=== PATIENT | male | born 1970 | race Caucasian/White ===

== ENCOUNTER 2018-03-28 10:44 | Emergency (ER) | payer OTHER ==
[2018-03-28] MEDS ORDERED: ONDANSETRON 4 MG/2 ML VIAL ONE (11:19)
[2018-03-28] MEDS ORDERED: MECLIZINE HCL 12.5 MG TAB ONE (11:19)
--- NOTE | 2018-03-28 11:51 | RAD REPORT ---
EXAM DESCRIPTION: CT - Head Brain Wo Cont - 03/28/2018 11:33 am CLINICAL HISTORY: Weakness, dizziness, syncope COMPARISON: CT head November 2013 TECHNIQUE: Axial 5 mm thick images of the head were obtained without IV contrast. All CT scans are performed using dose optimization technique as appropriate and may include automated exposure control or mA/KV adjustment according to patient size. FINDINGS: No intracranial hemorrhage, mass, edema or shift of mid-line structures. No acute infarcti on changes seen. No abnormal extra-axial fluid collections. Ventricles are normal. Mastoid air cells and visualized portions of the paranasal sinuses are clear. No acute bony findings. IMPRESSION: Negative non-contrast CT head examination. No significant change from comparison.
[2018-03-28 12:14] LABS: Protime INR 0.97
[2018-03-28 12:43] LABS: Absolute Lymphocytes (CBC) 1.8 K/uL (0.7-4.9); Absolute Monocytes 0.7 K/uL (0.1-1.3); Absolute Neutrophil 4.2 K/uL (1.8-8.0); Basophils % 0.9 % (0-1.3); Eosinophils % 2.1 % (0-4.4); Hematocrit 41.9 % (39.6-49.0); Lymphocytes % 25.7 % (15.3-44.8); MCH 29.6 pg (27.0-35.0); MCV 86.3 fL (80-100); Monocytes % 9.7 % (3.3-12.3); RBC Red Blood Cell Count 4.86 M/uL (4.33-5.43)
[2018-03-28] MEDS ORDERED: ASPIRIN 81 MG CHEWABLE TABLET ONE (12:53)
[2018-03-28 13:41] LABS: ALT/SGPT 65 U/L (12-78); AST/SGOT 34 U/L (15-37); Albumin 3.5 g/dL (3.4-5.0); Alkaline Phosphatase 65 U/L (45-117); BUN Blood Urea Nitrogen 12 mg/dL (7-18); Bicarbonate 25 mmol/L (21-32); Bilirubin Direct 0.2 mg/dL (0-0.2); CKMB Creatine Kinase MB 2.4 ng/mL (0.3-3.6); Creatine Phosphokinase 299 U/L (39-308); Glucose Level 98 mg/dL (74-106); Magnesium 2.3 mg/dL (1.8-2.4); Potassium 3.9 mmol/L (3.5-5.1); Sodium Level 140 mmol/L (136-145)
--- NOTE | 2018-03-28 15:09 | RAD REPORT ---
EXAM DESCRIPTION: MRI - Brain Wo Cont - 03/28/2018 2:48 pm CLINICAL HISTORY: Dizziness and vertigo COMPARISON: 03/28/[address] TECHNIQUE: Axial, sagittal, and coronal magnetic images of the brain were obtained. Contrast was not requested FINDINGS: No abnormal signal is present within the brain. Diffusion-weighted/ADC mapping does not reveal evidence of acute infarction. The ventricles are normal caliber. An extra-axial fluid collection is not present The sinuses and mastoids are clear. IMPRESSION: Unremarkable unenhanced brain MRI
[2018-03-28 15:46] LABS: Urine Blood TRACE (NEG); Urine Glucose NEGATIVE (NEG); Urine Protein NEGATIVE (NEG); Urine Specific Gravity 1.015 (1.005-1.030)
--- NOTE | 2018-03-28 16:15 | EDPHYS ---
Physician Documentation [facility] Name: Jose Barraza Age: 47 yrs Sex: Male : 1970 Arrival Date: 03/28/2018 Time: 10:45 Bed 13 Private MD: None, None ED Physician Dave Carranza HPI: 03/28 11:10 This 47 yrs old Male presents to ER via Ambulatory with complaints of cp Dizziness. 11:10 The patient presents with dizziness, lightheadedness, sense of spinning. Onset: The cp symptoms/episode began/occurred this morning. 11:10 Context: just prior to the episode the patient experienced no apparent symptoms, worse cp when sitting up from lying flat. Associated signs and symptoms: Pertinent positives: blurred vision, Pertinent negatives: abdominal pain, chest pain, focal weakness, headache, near-syncope, numbness, palpitations, shortness of breath, syncope. Severity of symptoms: in the emergency department the symptoms are unchanged. Patient's baseline: Neuro: alert and fully oriented, Motor: no deficits, Ambulation: walks without assistance, Speech: normal, The patient has a previous history of TIA. Historical: - Allergies: 10:54 No Known Allergies; aj - Home Meds: 10:54 None [Active]; aj - PMHx: 10:54 TIA; Sleep Apnea; aj - PSHx: 10:54 None; aj - Immunization history:: Adult Immunizations up to date. - Social history:: Smoking status: Patient/guardian denies using tobacco. - Ebola Screening: : Patient negative for fever greater than or equal to 101.5 degrees Fahrenheit, and additional compatible Ebola Virus Disease symptoms Patient denies exposure to infectious person Patient denies travel to an Ebola-affected area in the 21 days before illness onset No symptoms or risks identified at this time. ROS: 11:15 Constitutional: Negative for body aches, chills, fever, poor PO intake. cp 11:15 Eyes: Positive for blurry vision, Negative for discharge, pain, photophobia, redness, cp vision loss. 11:15 ENT: Negative for drainage from ear(s), ear pain, sore throat, difficulty swallowing, difficulty handling secretions. 11:15 Cardiovascular: Negative for chest pain, edema, palpitations. 11:15 Respiratory: Negative for cough, shortness of breath, wheezing. 11:15 Abdomen/GI: Negative for abdominal pain, vomiting, diarrhea, constipation, anorexia, dysphagia, black/tarry stool, rectal bleeding. 11:15 Back: Negative for pain at rest, pain with movement, radiated pain. 11:15 : Negative for urinary symptoms. 11:15 MS/extremity: Negative for injury or acute deformity, decreased range of motion, paresthesias. 11:15 Skin: Negative for cellulitis, rash. 11:15 Neuro: Positive for dizziness, Negative for altered mental status, gait disturbance, headache, numbness, speech changes, syncope, near syncope, weakness. 11:15 All other systems are negative. Exam: 11:22 Constitutional: The patient appears in no acute distress, alert, awake, cp non-diaphoretic, non-toxic, well developed, well nourished. 11:22 Head/Face: Normocephalic, atraumatic. Eyes: Pupils equal round and reactive to light, cp extra-ocular motions intact. Lids and lashes normal. Conjunctiva and sclera are non-icteric and not injected. Cornea within normal limits. Periorbital areas with no swelling, redness, or edema. ENT: Nares patent. No nasal discharge, no septal abnormalities noted. Tympanic membranes are normal and external auditory canals are clear. Oropharynx with no redness, swelling, or masses, exudates, or evidence of obstruction, uvula midline. Mucous membranes moist. Neck: Trachea midline, no thyromegaly or masses palpated, and no cervical lymphadenopathy. Supple, full range of motion without nuchal rigidity, or vertebral point tenderness. No Meningismus. Chest/axilla: Normal chest wall appearance and motion. Nontender with no deformity. No lesions are appreciated. 11:22 Cardiovascular: Rate: normal, Rhythm: regular, Pulses: Pulses are 2+ in right radial artery and left radial artery. Heart sounds: murmur, not appreciated, Edema: is not appreciated, JVD: is not appreciated. 11:22 Respiratory: the patient does not display signs of respiratory distress, Respirations: normal, no use of accessory muscles, no retractions, no splinting, no tachypnea, labored breathing, is not present, Breath sounds: are clear throughout, no decreased breath sounds, no stridor, no wheezing. 11:22 Abdomen/GI: Inspection: abdomen appears normal, Bowel sounds: active, all quadrants, Palpation: abdomen is soft and non-tender, in all quadrants, rebound tenderness, is not appreciated, voluntary guarding, is not appreciated, involuntary guarding, is not appreciated. 11:22 Back: pain, is absent, ROM is normal. 11:22 Skin: cellulitis, is not appreciated, no rash present. 11:22 Neuro: Orientation: to person, place \T\ time. Mentation: lucid, able to follow commands, Cerebellar function: Romberg testing is negative, normal finger to nose testing, heel to pollack testing is normal, Motor: moves all fours, strength is normal, Sensation: no obvious gross deficits. 11:43 ECG was reviewed by the Attending Physician. cp Vital Signs: 10:54 BP 125 / 75; Pulse 68; Resp 16; Temp 97.6; Pulse Ox 97% on R/A; Weight 129.27 kg; aj Height 6 ft. 1 in. (185.42 cm); 11:15 BP 114 / 68 Supine; Pulse 62; Resp 18; Pulse Ox 97% on R/A; hj 11:15 BP 115 / 69 Sitting; Pulse 72; Resp 18; Pulse Ox 97% on R/A; hj 11:15 BP 118 / 78 Standing; Pulse 68; Resp 18; Pulse Ox 97% on R/A; hj 13:12 BP 120 / 70; Pulse 71; Resp 18; Pulse Ox 100% on R/A; hj 14:45 BP 122 / 68; Pulse 70; Resp 18; Pulse Ox 100% on R/A; hj 15:52 BP 123 / 70; Pulse 72; Resp 18; Pulse Ox 100% on R/A; hj 16:20 BP 124 / 69; Pulse 74; Resp 18; Pulse Ox 100% on R/A; hj 10:54 Body Mass Index 37.60 (129.27 kg, 185.42 cm) aj MDM: 10:58 Patient medically screened. cp 12:00 Differential diagnosis: cardiac arrhythmia, CVA, generalized weakness, GI bleed, cp hypovolemia, idiopathic dizziness, TIA, vertigo. 16:15 Data reviewed: vital signs, nurses notes, lab test result(s), EKG, radiologic studies, cp CT scan, MRI, plain films. 16:15 Test interpretation: by ED physician or midlevel provider: ECG, plain radiologic cp studies. Counseling: I had a detailed discussion with the patient and/or guardian regarding: the historical points, exam findings, and any diagnostic results supporting the discharge/admit diagnosis, lab results, radiology results, to return to the emergency department if symptoms worsen or persist or if there are any questions or concerns that arise at home. Response to treatment: the patient's symptoms have markedly improved after treatment, and as a result, I will discharge patient. 16:15 ED course: VSS. Gait steady when ambulating in ED. Patient reports he is feeling cp better. Will discharge to home for continued monitoring. 03/28 12:19 Order name: Protime (+INR); Complete Time: 12:32 EDMS 03/28 12:19 Order name: PTT, Activated Partial Thromb; Complete Time: 12:32 EDMS 03/28 12:44 Order name: CBC with Automated Diff; Complete Time: 14:22 EDMS 03/28 13:41 Order name: Basic Metabolic Panel; Complete Time: 14:22 EDMS 03/28 14:22 Interpretation: Normal except: CL 108. cp 03/28 13:41 Order name: Liver (Hepatic) Function; Complete Time: 14:22 EDMS 03/28 14:22 Interpretation: Normal except: A/G 1.0. cp 03/28 13:41 Order name: Creatine Phosphokinase; Complete Time: 14:22 EDMS 03/28 10:58 Order name: Orthostatics; Complete Time: 11:28 cp 03/28 11:09 Order name: EKG; Complete Time: 13:34 cp 03/28 11:09 Order name: Cardiac monitoring; Complete Time: 11:09 cp 03/28 11:09 Order name: EKG - Nurse/Tech; Complete Time: 11:09 cp 03/28 11:09 Order name: IV Saline Lock; Complete Time: 11:28 cp 03/28 11:09 Order name: CT Head Brain wo Cont cp 03/28 12:13 Order name: CT; Complete Time: 12:32 EDMS 03/28 12:33 Interpretation: Report reviewed. cp 03/28 12:38 Order name: Carotid Artery Bilateral US cp 03/28 12:38 Order name: MRI - Brain Wo Cont; Complete Time: 16:05 cp 03/28 13:41 Order name: CKMB Creatine Kinase MB; Complete Time: 14:22 EDMS 03/28 13:41 Order name: Magnesium; Complete Time: 14:22 EDMS 03/28 13:55 Order name: EKG Electrocardiogram EDMS 03/28 14:19 Order name: Urine Dipstick--Ancillary (enter results); Complete Time: 16:05 eb 03/28 16:17 Interpretation: Normal except: UBLD TRACE. 03/28 11:09 Order name: Labs collected and sent; Complete Time: 11:28 03/28 11:09 Order name: O2 Per Protocol; Complete Time: 11:10 cp 03/28 11:09 Order name: O2 Sat Monitoring; Complete Time: 11:10 cp 03/28 11:09 Order name: Urine Dipstick-Ancillary (obtain specimen); Complete Time: 14:07 EC:43 Rate is 66 beats/min. Rhythm is regular. WA interval is normal. QRS interval is normal. cp QT interval is normal. T waves are Flattened in lead III. Interpreted by me. Reviewed by me. Administered Medications: 11:09 Drug: Meclizine 25 mg Route: PO; hj 12:16 Follow up: Response: No adverse reaction; Other hj 11:09 Drug: Zofran 4 mg Route: IVP; Site: right antecubital; hj 12:17 Follow up: Response: No adverse reaction hj 12:44 Drug: Aspirin 81 mg Route: PO; hj 13:12 Follow up: Response: No adverse reaction Disposition: 17:00 Chart complete. Disposition: 03/28/18 16:15 Discharged to Home. Impression: Dizziness and giddiness. - Condition is Stable. - Discharge Instructions: Benign Positional Vertigo, Dizziness, Aspirin and Your Heart. - Prescriptions for Meclizine 25 mg Oral Tablet - take 1 tablet by ORAL route every 8 hours As needed; 30 tablet. Zofran 4 mg Oral Tablet - take 1 tablet by ORAL route every 12 hours As needed; 20 tablet. - Work release form, Medication Reconciliation Form, Thank You Letter, Antibiotic Education, Prescription Opioid Use form. - Follow up: Private Physician; When: 2 - 3 days; Reason: Recheck today's complaints. Follow up: Eyad Ortiz MD; When: 2 - 3 days; Reason: Recheck today's complaints. - Problem is new. - Symptoms have improved. Addendum: 03/31/2018 07:34 Co-signature as Attending Physician, Dave Carranza MD I agree with the assessment and c nicole plan of care. Signatures: Dispatcher [employer] EDNY Shae Meza, RN Dave Pathak MD MD cha Joaquin, Henry RN Dave Galeano, JEAN PENA cp Corrections: (The following items were deleted from the chart) 03/28 15:10 13:33 BASIC METABOLIC PANEL+C.LAB.BRZ ordered. EDMS EDMS 15:10 13:33 CBC+H.LAB.BRZ ordered. EDMS EDMS 15:10 13:33 CKMB+C.LAB.BRZ ordered. EDMS EDMS 15:10 13:33 CREATINE PHOSPHOKINASE+C.LAB.BRZ ordered. EDMS EDMS 15:10 13:33 HEPATIC FUNCTION+C.LAB.BRZ ordered. EDMS EDMS 15:10 13:33 MAGNESIUM+C.LAB.BRZ ordered. EDMS EDMS 15:11 13:33 PROTIME (+INR)+COAG.LAB.BRZ ordered. EDMS EDMS 15:11 13:33 PTT, ACTIVATED+COAG.LAB.BRZ ordered. EDMS EDMS 16:42 16:15 03/28/2018 16:15 Discharged to Home. Impression: Dizziness and giddiness. hj Condition is Stable. Forms are Medication Reconciliation Form, Thank You Letter, Antibiotic Education, Prescription Opioid Use. Follow up: Private Physician; When: 2 - 3 days; Reason: Recheck today's complaints. Problem is new. Symptoms have improved. cp
--- NOTE | 2018-03-28 16:15 | ER ---
Nurse's Notes [facility] Name: Jose Barraza Age: 47 yrs Sex: Male : 1970 Arrival Date: 03/28/2018 Time: 10:45 Bed 13 Private MD: None, None Diagnosis: Dizziness and giddiness Presentation: 03/28 10:52 Presenting complaint: Patient states: Dizziness that is worse when patient sit's up aj from laying down. Started this AM when patient woke up. Transition of care: patient was not received from another setting of care. Onset of symptoms was March 28, 2018. Risk Assessment: Do you want to hurt yourself or someone else? Patient reports no desire to harm self or others. Initial Sepsis Screen: Does the patient meet any 2 criteria? No. Patient's initial sepsis screen is negative. Does the patient have a suspected source of infection? No. Patient's initial sepsis screen is negative. Care prior to arrival: None. 10:52 Method Of Arrival: Ambulatory aj 10:52 Acuity: FRANKIE 3 aj Triage Assessment: 10:54 General: Appears in no apparent distress. comfortable, Behavior is calm, cooperative, aj appropriate for age. Pain: Denies pain. EENT: No signs and/or symptoms were reported regarding the EENT system. Neuro: Level of Consciousness is awake, alert, obeys commands, Oriented to person, place, time, situation, Appropriate for age Stretcher Operator are equal bilaterally Moves all extremities. Full function Gait is steady, Speech is normal, Reports dizziness. Respiratory: Airway is patent Respiratory effort is even, unlabored, Respiratory pattern is regular, symmetrical. Derm: Skin is intact, is healthy with good turgor, Skin is pink, warm \T\ dry. normal. Historical: - Allergies: 10:54 No Known Allergies; aj - Home Meds: 10:54 None [Active]; aj - PMHx: 10:54 TIA; Sleep Apnea; aj - PSHx: 10:54 None; aj - Immunization history:: Adult Immunizations up to date. - Social history:: Smoking status: Patient/guardian denies using tobacco. - Ebola Screening: : Patient negative for fever greater than or equal to 101.5 degrees Fahrenheit, and additional compatible Ebola Virus Disease symptoms Patient denies exposure to infectious person Patient denies travel to an Ebola-affected area in the 21 days before illness onset No symptoms or risks identified at this time. Screenin:15 Abuse screen: Denies threats or abuse. Denies injuries from another. Nutritional hj screening: No deficits noted. Tuberculosis screening: Fall Risk None identified. Assessment: 10:54 General: Appears in no apparent distress. uncomfortable, Behavior is calm, cooperative, hj appropriate for age. Pain: Denies pain. Neuro: Level of Consciousness is awake, alert, obeys commands, Oriented to person, place, time, situation, Appropriate for age. Neuro: Reports a syncopal episode. Cardiovascular: Capillary refill < 3 seconds Patient's skin is warm and dry. Respiratory: Airway is patent Respiratory effort is even, unlabored, Respiratory pattern is regular, symmetrical. GI: No signs and/or symptoms were reported involving the gastrointestinal system. : No signs and/or symptoms were reported regarding the genitourinary system. EENT: No signs and/or symptoms were reported regarding the EENT system. Derm: No signs and/or symptoms reported regarding the dermatologic system. Musculoskeletal: No signs and/or symptoms reported regarding the musculoskeletal system. 12:30 Reassessment: Patient and/or family updated on plan of care and expected duration. Pain hj level reassessed. Patient is alert, oriented x 3, equal unlabored respirations, skin warm/dry/pink. Patient states feeling better. Patient states symptoms have improved. 13:12 Reassessment: Patient and/or family updated on plan of care and expected duration. Pain hj level reassessed. Patient is alert, oriented x 3, equal unlabored respirations, skin warm/dry/pink. awaiting results and POC;. 14:45 Reassessment: wheeled to MRI;. hj 15:30 Reassessment: Patient and/or family updated on plan of care and expected duration. Pain hj level reassessed. Patient is alert, oriented x 3, equal unlabored respirations, skin warm/dry/pink. back form MRI;. 16:20 Reassessment: Patient and/or family updated on plan of care and expected duration. Pain hj level reassessed. Patient is alert, oriented x 3, equal unlabored respirations, skin warm/dry/pink. for D/C; Patient states feeling better. Patient states symptoms have improved. Vital Signs: 10:54 BP 125 / 75; Pulse 68; Resp 16; Temp 97.6; Pulse Ox 97% on R/A; Weight 129.27 kg; aj Height 6 ft. 1 in. (185.42 cm); 11:15 BP 114 / 68 Supine; Pulse 62; Resp 18; Pulse Ox 97% on R/A; hj 11:15 BP 115 / 69 Sitting; Pulse 72; Resp 18; Pulse Ox 97% on R/A; hj 11:15 BP 118 / 78 Standing; Pulse 68; Resp 18; Pulse Ox 97% on R/A; hj 13:12 BP 120 / 70; Pulse 71; Resp 18; Pulse Ox 100% on R/A; hj 14:45 BP 122 / 68; Pulse 70; Resp 18; Pulse Ox 100% on R/A; hj 15:52 BP 123 / 70; Pulse 72; Resp 18; Pulse Ox 100% on R/A; hj 16:20 BP 124 / 69; Pulse 74; Resp 18; Pulse Ox 100% on R/A; hj 10:54 Body Mass Index 37.60 (129.27 kg, 185.42 cm) aj ED Course: 10:45 Patient arrived in ED. mr 10:46 None, None is Private Physician. mr 10:53 Triage completed. aj 10:54 Arm band placed on right wrist. Patient placed. aj 10:57 Dave Hale PA is PHCP. cp 10:57 Dave Carranza MD is Attending Physician. cp 11:01 Evin Hernandez, TARA is Primary Nurse. hj 11:15 Patient has correct armband on for positive identification. Placed in gown. Bed in low hj position. Call light in reach. Side rails up X 1. 11:15 Initial lab(s) drawn, by il, sent to lab. Inserted saline lock: 22 gauge in right hj antecubital area, using aseptic technique. Blood collected. 11:46 EKG done, by diesel maintenance technician. reviewed by Dave PENA. at1 14:20 Patient moved to MRI via wheelchair. ka 14:42 MRI - Brain Wo Cont In Process Unspecified. EDMS 14:45 MRI completed. Patient tolerated well. em2 14:48 Patient taken to ultrasound. via wheelchair. lc3 15:05 Carotid Artery Bilateral US In Process Unspecified. EDMS 15:16 Ultrasound completed. Patient tolerated well. Patient moved back from ultrasound. aa4 16:14 Eyad Ortiz MD is Referral Physician. cp 16:14 Referral Physician role handed off by Eyad Ortiz MD cp 16:40 No provider procedures requiring assistance completed. IV discontinued, intact, hj bleeding controlled, No redness/swelling at site. Pressure dressing applied. Administered Medications: 11:09 Drug: Meclizine 25 mg Route: PO; hj 12:16 Follow up: Response: No adverse reaction; Other hj 11:09 Drug: Zofran 4 mg Route: IVP; Site: right antecubital; hj 12:17 Follow up: Response: No adverse reaction hj 12:44 Drug: Aspirin 81 mg Route: PO; hj 13:12 Follow up: Response: No adverse reaction hj Outcome: 16:15 Discharge ordered by . cp 16:40 Discharged to home ambulatory. hj 16:40 Condition: stable 16:40 Discharge instructions given to patient, Instructed on discharge instructions, follow up and referral plans. medication usage, Demonstrated understanding of instructions, follow-up care, medications, Prescriptions given X 2. 16:42 Patient left the ED. hj Signatures: Dispatcher [employer] EDMS Shae Meza, RN RN Barbara Jasso mr Forman, Shae aa4 Sherman, Rodrigo em2 Shae Bond, chef & owner EKG Tat1 Evin Hernandez RN RN hj Page, Corey, PA PA cp Cunningham, Laulita lc3 Aguilera, Katelyn ka
--- NOTE | 2018-03-28 16:44 | RAD REPORT ---
EXAM DESCRIPTION: USCarotid Artery Bilateral03/28/2018 3:09 pm CLINICAL HISTORY: Syncope COMPARISON: None FINDINGS: The velocity of the right internal carotid artery equals 67 cm/sec. The right ICA/CCA rati o 0.6 The velocity of the left internal carotid artery equals 66 cm/sec. The left ICA/CCA ratio 0.6 Plaque is not seen within the carotid arteries. The vertebral arteries demonstrate antegrade flow IMPRESSION: Unremarkable exam
--- NOTE | 2018-03-29 12:11 | EKG ---
Test Date: 2018-03-28 Test Time: 16:11:01 Precast Worker: JOHN MEASUREMENT RESULTS: Intervals: Rate: 65 AK: 182 QRSD: 102 QT: 424 QTc: 440 [place]: P: 57 AK: 182 QRS: 31 T: 39 INTERPRETIVE STATEMENTS: Normal sinus rhythm Nonspecific T wave abnormality Abnormal ECG Compared to ECG 03/28/2018 11:41:47 T-wave abnormality now present Electronically Signed On 03-29-18 12:07:38 CDT by Vicente Jarquin
--- NOTE | 2018-03-29 12:13 | EKG ---
Test Date: 2018-03-28 Test Time: 11:41:47 Derrick Boat Lever Operator: TAMMIE MEASUREMENT RESULTS: Intervals: Rate: 66 NM: 188 QRSD: 92 QT: 422 QTc: 442 [place]: P: 56 NM: 188 QRS: 29 T: 32 INTERPRETIVE STATEMENTS: Normal sinus rhythm Normal ECG Compared to ECG 11/27/2013 09:50:22 No significant changes Electronically Signed On 03-29-18 12:07:55 CDT by Vicente Jarquin
== END 2018-03-28 16:42 | disposition home or self-care (01) ==
LOC: ER 10:44
DX: R42 Dizziness and giddiness (principal)
CPT/HCPCS: 36415; 70450; 70551; 80048; 80076; 81003; 82550; 82553; 83735; 85025; 85610; 85730; 93005; 93880; 96374; 99284; J2405

== ENCOUNTER 2018-12-04 04:33 | Emergency (ER) | payer OTHER ==
[2018-12-04] MEDS ORDERED: HYDROCODONE/APAP 10/325 TAB ONE (05:53)
--- NOTE | 2018-12-04 08:09 | RAD REPORT ---
EXAM DESCRIPTION: US - Extremity Venous Uni Ltd - 12/04/2018 7:01 am CLINICAL HISTORY: Posterior right knee pain COMPARISON: None. TECHNIQUE: Real-time sonographic evaluation of the right lower extremity deep venous systems was per formed. FINDINGS: Normal compressibility, flow augmentation, phasic flow and spontaneous flow are identified in the right lower extremity common femoral and superficial femoral veins. Thrombus is present parti ally occlusive in the popliteal vein extending into the veins of the calf. No mass or abnormal fluid collection in the popliteal fossa. IMPRESSION: Acute deep venous thrombosis in the right popliteal vein extending distally into the upp er calf.
--- NOTE | 2018-12-04 08:36 | EDPHYS ---
Physician Documentation [facility] Name: Jose Barraza Age: 48 yrs Sex: Male : 1970 Arrival Date: 12/04/2018 Time: 04:35 Bed 6 Private MD: ED Physician Damián Ga HPI: 12/04 05:31 This 48 yrs old Male presents to ER via Wheelchair with complaints of Leg gs Pain. 05:31 The patient presents with pain, that is acute. The complaints affect the posterior gs aspect of right knee. Onset: The symptoms/episode began/occurred acutely, this morning. Modifying factors: the symptoms are aggravated by bending knee. Associated signs and symptoms: Pertinent positives: calf tenderness, Pertinent negatives numbness, warmth. Severity of symptoms: At their worst the symptoms were severe, in the emergency department the symptoms are unchanged. The patient has not experienced similar symptoms in the past. cant fully extend right knee. Historical: - Allergies: 04:30 No Known Allergies; cc3 - PMHx: 04:30 Sleep Apnea; TIA; vertigo; cc3 - PSHx: 04:30 None; cc3 - Immunization history:: Adult Immunizations up to date. - Social history:: Smoking status: Patient/guardian denies using tobacco, never smoked. - Ebola Screening: : No symptoms or risks identified at this time. ROS: 05:31 All other systems are negative. gs 18:50 Constitutional: Negative for fever, chills, and weight loss, Eyes: Negative for injury, kdr pain, redness, and discharge, Neck: Negative for injury, pain, and swelling, Cardiovascular: Negative for chest pain, palpitations, and edema, Respiratory: Negative for shortness of breath, cough, wheezing, and pleuritic chest pain, Abdomen/GI: Negative for abdominal pain, nausea, vomiting, diarrhea, and constipation, Back: Negative for injury and pain, : Negative for injury, bleeding, discharge, and swelling, Neuro: Negative for headache, weakness, numbness, tingling, and seizure activity. Psych: Negative for depression, anxiety, suicide ideation, homicidal ideation, and hallucinations, Allergy/Immunology: Negative for hives, rash, and allergies, Endocrine: Negative for neck swelling, polydipsia, polyuria, polyphagia, and marked weight changes, Hematologic/Lymphatic: Negative for swollen nodes, abnormal bleeding, and unusual bruising. 18:50 Skin: Positive for cellulitis, of the lateral aspect of left calf, left lateral ankle, left calf, left Achilles, medial aspect of left calf, left pollack and anterior aspect of left ankle. Exam: 05:31 Head/Face: Normocephalic, atraumatic. Eyes: Pupils equal round and reactive to light, gs extra-ocular motions intact. Lids and lashes normal. Conjunctiva and sclera are non-icteric and not injected. Cornea within normal limits. Periorbital areas with no swelling, redness, or edema. ENT: Nares patent. No nasal discharge, no septal abnormalities noted. Tympanic membranes are normal and external auditory canals are clear. Oropharynx with no redness, swelling, or masses, exudates, or evidence of obstruction, uvula midline. Mucous membranes moist. Neck: Trachea midline, no thyromegaly or masses palpated, and no cervical lymphadenopathy. Supple, full range of motion without nuchal rigidity, or vertebral point tenderness. No Meningismus. Chest/axilla: Normal chest wall appearance and motion. Nontender with no deformity. No lesions are appreciated. Cardiovascular: Regular rate and rhythm with a normal S1 and S2. No gallops, murmurs, or rubs. Normal PMI, no JVD. No pulse deficits. Respiratory: Lungs have equal breath sounds bilaterally, clear to auscultation and percussion. No rales, rhonchi or wheezes noted. No increased work of breathing, no retractions or nasal flaring. Abdomen/GI: Soft, non-tender, with normal bowel sounds. No distension or tympany. No guarding or rebound. No evidence of tenderness throughout. Back: No spinal tenderness. No costovertebral tenderness. Full range of motion. Skin: Warm, dry with normal turgor. Normal color with no rashes, no lesions, and no evidence of cellulitis. Neuro: Awake and alert, GCS 15, oriented to person, place, time, and situation. Cranial nerves II-XII grossly intact. Motor strength 5/5 in all extremities. Sensory grossly intact. Cerebellar exam normal. Normal gait. 05:31 Constitutional: The patient appears alert, awake. 05:31 Musculoskeletal/extremity: ROM: limited active range of motion, in the right knee, limited passive range of motion, Pulses: are normal with no appreciated deficits, Sensation intact. Vital Signs: 04:30 BP 129 / 95; Pulse 77; Resp 18 S; Temp 98.2(O); Pulse Ox 100% on R/A; Weight 133.81 kg cc3 (R); Height 6 ft. 1 in. (185.42 cm) (R); Pain 10/10; 05:30 BP 123 / 68; Pulse 68; Resp 16; Pulse Ox 98% on R/A; ak1 06:30 BP 105 / 50; Pulse 64; Resp 17 S; Temp 98(O); Pulse Ox 96% on R/A; cc3 08:30 BP 116 / 56; Pulse 62; Resp 15; Pulse Ox 99% on R/A; hb 04:30 Body Mass Index 38.92 (133.81 kg, 185.42 cm) cc3 MDM: 05:08 Patient medically screened. 05:31 Differential diagnosis: strain,dvt,meniscal tear. Data reviewed: vital signs, nurses gs notes, radiologic studies. Response to treatment: the patient's symptoms have markedly improved after treatment. 12/04 05:15 Order name: US Extremity Venous Unilateral Ltd; Complete Time: 08:26 gs Administered Medications: 05:41 Drug: [place] 10 mg-325 mg 1 tabs Route: PO; ak1 06:20 Follow up: Response: No adverse reaction; Pain is decreased cc3 09:00 Drug: Lovenox 1 mg/kg Route: Sub-Q; Site: abdomen; hb Disposition: 12/04/18 08:36 Discharged to Home. Impression: Acute embolism and thrombosis of deep veins of lower extremity. - Condition is Stable. - Discharge Instructions: Deep Vein Thrombosis. - Prescriptions for Eliquis 5 mg Oral tablet - take 1 tablet by ORAL route 2 times per day; 60 tablet. Tylenol- Codeine #3 300-30 mg Oral Tablet - take 2 tablets by ORAL route every 6 hours As needed; 15 tablet. - Medication Reconciliation Form, Thank You Letter, Work release form form. - Follow up: Private Physician; When: 2 - 3 days; Reason: If symptoms return, Further diagnostic work-up, Recheck today's complaints, Continuance of care, Re-evaluation by your physician. - Problem is new. - Symptoms are unchanged. Signatures: Dispatcher [employer] Valery Marquis RN RN sv Damián Ga MD MD kdr Elis Kinney RN RN ak1 Krystal Simms RN RN Joe Beard MD MD Viviane Lazaro cc3 Corrections: (The following items were deleted from the chart) 08:54 05:29 MRA Lower Ext Wo Cont ordered. EDMS EDMS 09:28 08:36 12/04/2018 08:36 Discharged to Home. Impression: Acute embolism and thrombosis of sv deep veins of lower extremity. Condition is Stable. Forms are Medication Reconciliation Form, Thank You Letter, Antibiotic Education, Prescription Opioid Use. Follow up: Private Physician; When: 2 - 3 days; Reason: If symptoms return, Further diagnostic work-up, Recheck today's complaints, Continuance of care, Re-evaluation by your physician. Problem is new. Symptoms are unchanged. kdr
--- NOTE | 2018-12-04 08:36 | ER ---
Nurse's Notes [facility] Name: Jose Barraza Age: 48 yrs Sex: Male : 1970 Arrival Date: 12/04/2018 Time: 04:35 Bed 6 Private MD: Diagnosis: Acute embolism and thrombosis of deep veins of lower extremity Presentation: 12/04 04:30 Presenting complaint: Patient states: Nontraumatic right leg pain that started this cc3 morning. Transition of care: patient was not received from another setting of care. Onset of symptoms was December 04, 2018. Risk Assessment: Do you want to hurt yourself or someone else? Patient reports no desire to harm self or others. Initial Sepsis Screen: Does the patient meet any 2 criteria? No. Patient's initial sepsis screen is negative. Does the patient have a suspected source of infection? No. Patient's initial sepsis screen is negative. Care prior to arrival: None. 04:30 Method Of Arrival: Wheelchair cc3 04:30 Acuity: FRANKIE 3 cc3 Triage Assessment: 04:30 General: Appears in no apparent distress. uncomfortable, Behavior is cooperative. Pain: cc3 Complains of pain in right leg Pain currently is 10 out of 10 on a pain scale. Quality of pain is described as aching, sharp, on movement. EENT: No signs and/or symptoms were reported regarding the EENT system. Neuro: Level of Consciousness is awake, alert, obeys commands, Oriented to person, place, time, situation, Appropriate for age. Cardiovascular: Denies chest pain, Patient's skin is warm and dry. Respiratory: Airway is patent Respiratory effort is even, unlabored, Respiratory pattern is regular, symmetrical. GI: Abdomen is round obese. : No signs and/or symptoms were reported regarding the genitourinary system. Derm: No signs and/or symptoms reported regarding the dermatologic system. Musculoskeletal: Range of motion: limited in right leg. Historical: - Allergies: 04:30 No Known Allergies; cc3 - PMHx: 04:30 Sleep Apnea; TIA; vertigo; cc3 - PSHx: 04:30 None; cc3 - Immunization history:: Adult Immunizations up to date. - Social history:: Smoking status: Patient/guardian denies using tobacco, never smoked. - Ebola Screening: : No symptoms or risks identified at this time. Screenin:30 Abuse screen: Denies threats or abuse. Denies injuries from another. Nutritional cc3 screening: No deficits noted. Tuberculosis screening: No symptoms or risk factors identified. Fall Risk Ambulatory Aid- None/Bed Rest/Nurse Assist (0 pts). Gait- Weak (10 pts.). Mental Status- Oriented to own ability (0 pts). Assessment: 04:30 General: see triage assessment. cc3 05:50 Reassessment: Patient appears in no apparent distress at this time. Patient and/or ak1 family updated on plan of care and expected duration. Pain level reassessed. Patient is alert, oriented x 3, equal unlabored respirations, skin warm/dry/pink. pt stated he has a ride home should he be discharged. 06:45 Reassessment: Patient appears in no apparent distress at this time. Patient and/or cc3 family updated on plan of care and expected duration. Pain level reassessed. Patient is alert, oriented x 3, equal unlabored respirations, skin warm/dry/pink. heat transfer technician came bedside to do ultrasound extremity venous. 07:15 Reassessment: Patient appears in no apparent distress at this time. Patient and/or hb family updated on plan of care and expected duration. Pain level reassessed. Patient is alert, oriented x 3, equal unlabored respirations, skin warm/dry/pink. 08:14 Reassessment: Patient appears in no apparent distress at this time. Patient and/or hb family updated on plan of care and expected duration. Pain level reassessed. Patient is alert, oriented x 3, equal unlabored respirations, skin warm/dry/pink. 09:00 Reassessment: Patient appears in no apparent distress at this time. No changes from previously documented assessment. Patient and/or family updated on plan of care and expected duration. Pain level reassessed. Patient is alert, oriented x 3, equal unlabored respirations, skin warm/dry/pink. 09:08 Reassessment: Discharge ordered, awaiting transportation at this time. Vital Signs: 04:30 BP 129 / 95; Pulse 77; Resp 18 S; Temp 98.2(O); Pulse Ox 100% on R/A; Weight 133.81 kg cc3 (R); Height 6 ft. 1 in. (185.42 cm) (R); Pain 10/10; 05:30 BP 123 / 68; Pulse 68; Resp 16; Pulse Ox 98% on R/A; ak1 06:30 BP 105 / 50; Pulse 64; Resp 17 S; Temp 98(O); Pulse Ox 96% on R/A; cc3 08:30 BP 116 / 56; Pulse 62; Resp 15; Pulse Ox 99% on R/A; hb 04:30 Body Mass Index 38.92 (133.81 kg, 185.42 cm) cc3 ED Course: 04:30 Arm band placed on right wrist. Patient notified of wait time. cc3 04:30 Patient has correct armband on for positive identification. Placed in gown. Bed in low cc3 position. Call light in reach. Side rails up X 1. Pulse ox on. NIBP on. 04:35 Patient arrived in ED. ed1 04:37 Joe Beard MD is Attending Physician. gs 04:44 Triage completed. cc3 04:51 Viviane Lazaro is Primary Nurse. cc3 05:50 Door closed. Lights dimmed. Warm blanket given. Pillow given. ak1 07:00 Report given to TARA Rice and TARA Rasmussen. cc3 07:01 US Extremity Venous Unilateral Ltd In Process Unspecified. EDMS 07:01 Ultrasound completed. Patient tolerated well. aa4 07:14 Attending Physician role handed off by Joe Beard MD kdr 07:14 Damián Ga MD is Attending Physician. kdr 07:26 Krystal Simms, TARA is Primary Nurse. hb 09:20 Patient did not have IV access during this emergency room visit. hb 09:27 No provider procedures requiring assistance completed. hb Administered Medications: 05:41 Drug: [place] 10 mg-325 mg 1 tabs Route: PO; ak1 06:20 Follow up: Response: No adverse reaction; Pain is decreased cc3 09:00 Drug: Lovenox 1 mg/kg Route: Sub-Q; Site: abdomen; hb Outcome: 08:36 Discharge ordered by . kdr 09:20 Discharged to home ambulatory, with family. hb 09:20 Condition: stable 09:20 Discharge instructions given to patient, Instructed on discharge instructions, follow up and referral plans. medication usage, Demonstrated understanding of instructions, follow-up care, medications, Prescriptions given X 1. 09:28 Patient left the ED. sv Signatures: Dispatcher [employer] EDValery Ren RN RN Damián Ga MD MD kdr Frazier, Amanda aa4 Riggs, Erika, RN RN ed1 Elis Kinney RN RN ak1 Krystal Simms RN RN hb Starr, Gregory, MD MD gs Cordel, Charlene cc3 Corrections: (The following items were deleted from the chart) 05:51 05:51 BP 123 / 68; Pulse 68bpm; Resp 16bpm; Pulse Ox 98% RA; ak1 ak1 06:49 06:26 Reassessment: Patient appears in no apparent distress at this time. Patient cc3 and/or family updated on plan of care and expected duration. Pain level reassessed. Patient is alert, oriented x 3, equal unlabored respirations, skin warm/dry/pink. cc3
[2018-12-04] MEDS ORDERED: ENOXAPARIN 100 MG/ML SYR SQ ONE (09:03)
[2018-12-04] MEDS ORDERED: ENOXAPARIN 30 MG/0.3 ML SQ ONE (09:03)
== END 2018-12-04 09:28 | disposition home or self-care (01) ==
LOC: ER 04:33
DX: I82.401 Acute embolism and thrombosis of unspecified deep veins of right lower extremity (principal)
CPT/HCPCS: 93971; 96372; 99284; J1650

== ENCOUNTER 2022-05-23 15:38 | Inpatient (IN) | payer BC, OTHER ==
[2022-05-23 16:30] LABS: Hematocrit 41.2 % (39.6-49.0); Lymphocytes % 22.4 % (15.3-44.8); MCV 87.4 fL (80-100); MPV 7.3 fL (7.6-11.3); RBC Red Blood Cell Count 4.71 M/uL (4.33-5.43)
[2022-05-23 16:44] LABS: Protime INR 0.95
--- NOTE | 2022-05-23 16:48 | RAD REPORT ---
EXAM DESCRIPTION: RAD - Chest Single View - 05/23/2022 4:41 pm CLINICAL HISTORY: CHEST PAIN COMPARISON: Two view chest 10/05/2016 TECHNIQUE: AP portable chest image was obtained 05/23/2022 4:41 pm . FINDINGS: No focal lung parenchymal process. Interstitial pattern is similar to comparison. Heart si ze is upper normal to slightly enlarged, not substantially different from comparison. No significant failure or volume overload. No measurable pleural effusion and no pneumothorax. No acute bony abnormality seen. No acute aortic findings suspected. IMPRESSION: No acute cardiopulmonary process. No significant change from comparison study.
[2022-05-23 16:54] LABS: Albumin 3.6 g/dL (3.4-5.0); Bilirubin Direct 0.1 mg/dL (0-0.2); Bilirubin Total 0.4 mg/dL (0.2-1.0); Magnesium 2.3 mg/dL (1.8-2.4); Potassium 3.6 mmol/L (3.5-5.1); Protein, Total 7.5 g/dL (6.4-8.2)
[2022-05-23 17:10] LABS: Troponin High Sensitivity 182.5 pg/mL (<58.9)
--- NOTE | 2022-05-23 17:22 | ER ---
Nurse's Notes [facility] Name: Jose Barraza Age: 51 yrs Sex: Male : 1970 Arrival Date: 05/23/2022 Time: 15:42 Bed 17 Private MD: Diagnosis: NSTEMI Presentation: 05/23 16:03 Chief complaint: Patient states: CP and HTN since 2 PM. Coronavirus screen: Vaccine iw status: Patient reports receiving the 2nd dose of the covid vaccine. Client denies travel out of the [place] in the last 14 days. At this time, the client does not indicate any symptoms associated with coronavirus-19. Ebola Screen: Patient denies travel to an Ebola-affected area in the 21 days before illness onset. Initial Sepsis Screen: Does the patient meet any 2 criteria? No. Patient's initial sepsis screen is negative. Does the patient have a suspected source of infection? No. Patient's initial sepsis screen is negative. Risk Assessment: Do you want to hurt yourself or someone else? Patient reports no desire to harm self or others. Onset of symptoms was May 23, 2022. 16:03 Method Of Arrival: Ambulatory iw 16:03 Acuity: FRANKIE 2 iw Triage Assessment: 16:03 General: Appears uncomfortable, Behavior is cooperative, appropriate for age. Pain: iw Complains of pain in chest. Cardiovascular: Reports chest pain, high BP. Historical: - Allergies: 16:02 No Known Allergies; iw - Home Meds: 18:47 Xarelto 20 mg oral tab 1 tab once daily [Active]; fenofibrate 150 mg oral cap 1 cap kb3 once daily [Active]; - PMHx: 16:02 Sleep Apnea; TIA; Vertigo; DVT; arthritis knees; iw - PSHx: 16:02 None; iw - Immunization history:: Client reports receiving the 2nd dose of the Covid vaccine. - Social history:: Smoking status: Patient denies any tobacco usage or history of. Screenin:02 Abuse screen: Denies threats or abuse. Denies injuries from another. Nutritional kb3 screening: No deficits noted. Tuberculosis screening: No symptoms or risk factors identified. Fall Risk None identified. Assessment: 16:02 Reassessment: Patient appears in no apparent distress at this time. General: Appears in kb3 no apparent distress. uncomfortable, Behavior is calm, cooperative. General: Received care of pt from [place]. 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 Pt reports he drove to this ED from scene and that pain has decreased in chest but is now in posterior neck and bilateral arms and bilateral upper back.. Pain: Complains of pain in anterior aspect of left upper chest and left breast Pain radiates to left scapular area, right scapular area, left subscapular area, right subscapular area, thoracic area, right arm, left arm, right posterior aspect of neck and left posterior aspect of neck Pain began suddenly, 2 hours ago. Cardiovascular: Reports chest pain, nausea, shortness of breath, Rhythm is sinus rhythm. Respiratory: Breath sounds are clear the patient has mild shortness of breath. Vital Signs: 16:02 BP 134 / 82; Pulse 70; Resp 20; Temp 98.9; Pulse Ox 98% ; Pain 7/10; kb3 16:03 Weight 139.71 kg; Height 6 ft. 1 in. (185.42 cm); iw 17:00 BP 118 / 78; Pulse 68; Resp 20; Pulse Ox 98% ; kb3 18:00 BP 121 / 77; Pulse 59; Resp 18; Pulse Ox 99% ; kb3 16:03 Body Mass Index 40.64 (139.71 kg, 185.42 cm) iw ED Course: 15:42 Patient arrived in ED. mr 16:02 Jyoti Goldman, RN is Primary Nurse. kb3 16:02 Arm band placed on Patient placed in an exam room, on a stretcher. iw 16:02 Patient has correct armband on for positive identification. Placed in gown. Bed in low kb3 position. Call light in reach. Client placed on continuous cardiac and pulse oximetry monitoring. NIBP monitoring applied. manager monitoring on. 16:02 No provider procedures requiring assistance completed. Patient maintains SpO2 kb3 saturation greater than 95% on room air. 16:03 Triage completed. iw 16:10 Inserted saline lock: 20 gauge in right antecubital area, using aseptic technique. kb3 Blood collected. 16:12 Vance Morse NP is PHCP. pm1 16:12 Damián Ga MD is Attending Physician. pm1 16:43 XRAY Chest (1 view) In Process Unspecified. EDMS 17:21 Shmuel Blankenship MD is Hospitalizing Provider. pm1 17:21 SARS RAPID Sent. kb3 17:42 SARS RAPID Sent. kb3 20:04 Patient admitted, IV remains in place. vc1 Administered Medications: 18:00 Drug: Heparin (TN Drip) 12 units/kg/hr - (HEParin 04947 units, D5W 500 ml) kb3 {Co-Signature: koEla (Lara Stacy RN).} Route: IV; Rate: calculated rate; Site: right antecubital; Medication: 16:02 VIS not applicable for this client. kb3 Outcome: 17:21 Decision to Hospitalize by Provider. pm1 20:03 Admitted to Tele accompanied by nurse, via wheelchair, room 405, with chart, Report vc1 called to Bessie Coon RN 20:03 Condition: good 20:03 Instructed on the need for admit. 20:04 Patient left the ED. vc1 Signatures: Dispatcher [employer] EDWV Eric Claudine Earnestine Amado, TARA PACHECO iw Vance Morse NP [employer] pm1 Sandy Valladares RN RN vc1 Jyoti Goldman, TARA RN kb3 Lara Stacy RN koEla
--- NOTE | 2022-05-23 17:22 | EDPHYS ---
Physician Documentation [facility] Name: Jose Barraza Age: 51 yrs Sex: Male : 1970 Arrival Date: 05/23/2022 Time: 15:42 Bed 17 Private MD: ED Physician Damián Ga HPI: 05/23 17:15 This 51 yrs old Male presents to ER via Ambulatory with complaints of High Blood pm1 Pressure, Chest Pain. 17:15 The patient or guardian reports chest pain that is located primarily in the mid-sternal pm1 area. Onset: today, 2 hour(s) ago. The pain does not radiate. Associated signs and symptoms: Pertinent positives: headache, shortness of breath, elevated blood pressure. Duration: The patient or guardian reports a single episode, that is now resolved, that lasted 1.5 hour(s). Modifying factors: The symptoms are alleviated by decreased blood pressure. the symptoms are aggravated by nothing. Severity of pain: in the emergency department the pain has resolved and did so just prior to arrival. The patient has not experienced similar symptoms in the past. The patient has not recently seen a physician. Historical: - Allergies: 16:02 No Known Allergies; iw - Home Meds: 18:47 Xarelto 20 mg oral tab 1 tab once daily [Active]; fenofibrate 150 mg oral cap 1 cap kb3 once daily [Active]; - PMHx: 16:02 Sleep Apnea; TIA; Vertigo; DVT; arthritis knees; iw - PSHx: 16:02 None; iw - Immunization history:: Client reports receiving the 2nd dose of the Covid vaccine. - Social history:: Smoking status: Patient denies any tobacco usage or history of. ROS: 17:15 Constitutional: Negative for fever, chills, and weight loss. pm1 17:15 Abdomen/GI: Negative for abdominal pain, nausea, vomiting, diarrhea, and constipation, Back: Negative for injury and pain, MS/Extremity: Negative for injury and deformity, Skin: Negative for injury, rash, and discoloration. 17:15 Cardiovascular: Positive for chest pain, of the mid-sternal area, Negative for edema, palpitations. 17:15 Respiratory: Positive for shortness of breath, Negative for cough. 17:15 Neuro: Positive for headache. 17:15 All other systems are negative. Exam: 17:15 Constitutional: This is a well developed, well nourished patient who is awake, alert, pm1 and in no acute distress. Head/Face: Normocephalic, atraumatic. 17:15 Back: No spinal tenderness. No costovertebral tenderness. Full range of motion. Skin: Warm, dry with normal turgor. Normal color with no rashes, no lesions, and no evidence of cellulitis. MS/ Extremity: Pulses equal, no cyanosis. Neurovascular intact. Full, normal range of motion. 17:15 Eyes: Exam is negative for acute changes, Periorbital structures: no acute changes, Extraocular movements: no acute changes, Conjunctiva: no acute changes, no injection. 17:15 ENT: Exam is negative for acute changes, Mouth: no acute changes, Lips: normal, moist, Oral mucosa: normal, pink and intact, moist. 17:15 Cardiovascular: Exam negative for acute changes, Rate: normal, Rhythm: regular, Pulses: no pulse deficits are appreciated, Heart sounds: normal, normal S1and S2. 17:15 Respiratory: Exam negative for acute changes, respiratory distress, shortness of breath, Breath sounds: are clear throughout. 17:15 Abdomen/GI: Exam negative for acute changes, Inspection: abdomen appears normal, Palpation: abdomen is soft and non-tender, in all quadrants. 17:15 Neuro: Exam negative for acute changes, Orientation: is normal, Mentation: is normal, Motor: is normal, moves all fours. Vital Signs: 16:02 BP 134 / 82; Pulse 70; Resp 20; Temp 98.9; Pulse Ox 98% ; Pain 7/10; kb3 16:03 Weight 139.71 kg; Height 6 ft. 1 in. (185.42 cm); iw 17:00 BP 118 / 78; Pulse 68; Resp 20; Pulse Ox 98% ; kb3 18:00 BP 121 / 77; Pulse 59; Resp 18; Pulse Ox 99% ; kb3 16:03 Body Mass Index 40.64 (139.71 kg, 185.42 cm) iw MDM: 16:15 Patient medically screened. pm1 17:13 Data reviewed: vital signs. Data interpreted: Pulse oximetry: on room air is 98 %. pm1 Interpretation: normal. Counseling: I had a detailed discussion with the patient and/or guardian regarding: the historical points, exam findings, and any diagnostic results supporting the discharge/admit diagnosis, lab results, radiology results, the need for further work-up and treatment in the hospital. 17:25 ED course: Patient takes xarelto each morning. Patient did not take his dose this AM. pm1 Will put the patient on a heparin drip for anticoagulation instead of xarelto. 05/23 16:13 Order name: Basic Metabolic Panel; Complete Time: 17:12 pm1 05/23 16:13 Order name: CBC with Diff; Complete Time: 17:12 pm1 05/23 16:13 Order name: LFT's; Complete Time: 17:12 pm1 05/23 16:13 Order name: Magnesium; Complete Time: 17:12 pm1 05/23 16:13 Order name: NT PRO-BNP; Complete Time: 17:12 pm1 05/23 16:13 Order name: PT-INR; Complete Time: 17:12 pm1 05/23 16:13 Order name: Troponin HS; Complete Time: 17:12 pm1 05/23 17:13 Order name: SARS RAPID; Complete Time: 18:15 pm1 05/23 17:43 Order name: Troponin High Sensitivity EDAK 05/23 17:43 Order name: Troponin High Sensitivity [facility] 05/23 17:43 Order name: Troponin High Sensitivity [facility] 05/23 17:44 Order name: Hemoglobin A1c EDAK 05/23 17:45 Order name: Lipid Profile; Complete Time: 19:52 EDAK 05/23 17:52 Order name: Ptt, Activated kb3 05/23 16:13 Order name: XRAY Chest (1 view); Complete Time: 17:12 pm1 05/23 16:13 Order name: EKG; Complete Time: 16:14 pm1 05/23 16:13 Order name: Cardiac monitoring; Complete Time: 16:35 pm1 05/23 16:13 Order name: EKG - Nurse/Tech; Complete Time: 16:35 pm1 05/23 16:13 Order name: IV Saline Lock; Complete Time: 16:35 pm1 05/23 16:13 Order name: Labs collected and sent; Complete Time: 16:35 pm1 05/23 16:13 Order name: O2 Per Protocol; Complete Time: 16:35 pm1 05/23 16:13 Order name: O2 Sat Monitoring; Complete Time: 16:35 pm1 05/23 17:39 Order name: CONS Physician Consult EDMS 05/23 17:43 Order name: Echo with Doppler EDMS 05/23 17:45 Order name: Heart Healthy EDMS 05/23 18:00 Order name: PTT, Activated Partial Thromb; Complete Time: 18:15 EDMS Administered Medications: 18:00 Drug: Heparin (NH Drip) 12 units/kg/hr - (HEParin 14184 units, D5W 500 ml) kb3 {Co-Signature: ko1 (Lara Stacy RN).} Route: IV; Rate: calculated rate; Site: right antecubital; Disposition Summary: 05/23/22 17:21 Hospitalization Ordered Hospitalization Status: Inpatient Admission pm1 Provider: Shmuel Blankenship pm1 Location: Telemetry/MedSurg (Inpatient) pm1 Condition: Stable pm1 Problem: new pm1 Symptoms: have improved pm1 Bed/Room Type: Standard pm1 Room Assignment: 405(05/23/22 18:12) bd Diagnosis - NSTEMI pm1 Forms: - Medication Reconciliation Form pm1 - SBAR form pm1 Signatures: Dispatcher [employer] EDMS Veronica Howard bd Earnestine Reed RN RN iw Vance Morse NP CUSTOMER SERVICE ASSISTANT pm1 Jyoti Goldman RN RN kb3 Lara Stacy RN ko1 Corrections: (The following items were deleted from the chart) 18:12 17:21 pm1 bd
[2022-05-23] MEDS ORDERED: ACETAMINOPHEN 325 MG TABLET PO PRN (17:41)
[2022-05-23] MEDS ORDERED: HYDROCODONE/APAP 10/325 TAB PO PRN (17:41)
[2022-05-23] MEDS ORDERED: HYDRALAZINE HCL 20 MG/ML VIAL IV PRN (17:42)
[2022-05-23] MEDS ORDERED: ONDANSETRON 4 MG/2 ML VIAL IV PRN (17:44)
[2022-05-23] MEDS ORDERED: SODIUM CHLORIDE 0.9% 10ML INJ IV PRN (17:45)
[2022-05-23 17:47] LABS: SARS-CoV-2 Antigen Rapid Res Negative (Negative)
--- NOTE | 2022-05-23 18:07 | P.HP ---
Certification for Inpatient Patient admitted to: Inpatient With expected LOS: >2 Midnights Patient will require the following post-hospital care: None Practitioner: I am a practitioner with admitting privileges, knowledge of patient current condition, hospital course, and medical plan of care. Services: Services provided to patient in accordance with Admission requirements found in Title 42 Section 412.3 of the Code of Federal Regulations Patient History Date of Service: 05/23/22 Reason for admission: Chest pain History of Present Illness: Patient is a 51-year-old male with a past medical history significant for TIA, DVT, osteoarthritis, vertigo, hypertriglyceridemia who presents with complaint of chest pain onset while patient was at work today. Patient indicated that chest pain is located in the left chest wall and radiates to his bilateral arms. Patient rated pain as 6/10 in severity and described pain as sharp/stabbing in quality. 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 Patient took an aspirin tablet. Patient reported associated signs and symptoms of shortness of breath and lightheadedness. 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 Patient denies any other signs and symptoms. Symptoms are aggravated or relieved by nothing. Patient was brought to the hospital for medical evaluation. Allergies NKDA Allergy (Uncoded 11/27/13 16:09) Unknown Home medications list reviewed: No - Past Medical/Surgical History -: TIA -: Sleep Apnea -: Obesity -: DVT -: OA Past Surgical History: Reviewed- Non-Contributory - Family History Father -: Cancer Mother -: Cancer Sister -: Cancer - Social History Smoking Status: Unknown if ever smoked Alcohol use: Yes CD- Drugs: No Caffeine use: No Place of Residence: Home Review of Systems General: Unremarkable Eyes: Unremarkable ENT: Unremarkable Respiratory: Shortness of Breath Cardiovascular: Chest Pain, Light Headedness Gastrointestinal: Unremarkable Genitourinary: Unremarkable Musculoskeletal: Arm Pain Integumentary: Unremarkable Neurological: Other (Light headedness ) Lymphatics: Unremarkable Physical Examination - Physical Exam General: Alert, Oriented x3 HEENT: Atraumatic, Normocephalic, PERRLA Neck: Supple, 2+ carotid pulse no bruit, Without JVD or thyroid abnormality Respiratory: Clear to auscultation bilaterally, Normal air movement Cardiovascular: No edema, Normal pulses Capillary refill: <2 Seconds Gastrointestinal: Normal bowel sounds, Soft and benign, No tenderness Musculoskeletal: No clubbing, No swelling, No contractures, No erythema, No tenderness Integumentary: No rashes, No breakdown, No significant lesion, No tenderness/swelling Neurological: Normal gait, Normal speech, Normal tone, Normal affect Lymphatics: No axilla or inguinal lymphadenopathy - Studies Laboratory Data (last 24 hrs) 05/23/22 16:10: APTT 28.6 05/23/22 16:10: PT 10.4, INR 0.95 05/23/22 16:10: WBC 9.20, Hgb 13.6, Hct 41.2, Plt Count 260 05/23/22 16:10: Sodium 140, Potassium 3.6, BUN 12, Creatinine 0.92, Glucose 107 H, Magnesium 2.3, Total Bilirubin 0.4, AST 36, ALT 88 H, Alkaline Phosphatase 51 Assessment and Plan - Plan --NSTEMI. Troponin elevated at 182.5. Cardiology consulted. Echocardiogram pending to assess cardiac structures and functions. Patient placed on heparin drip. Telemetry to monitor for any significant arrhythmia. Patient placed on aspirin, and Lipitor. Will await further recommendation from armature and rotor winder. --History of TIA. Continue aspirin. -- History of DVT. Patient on Xarelto at home. Continue heparin drip. -- Hypertriglyceridemia. Lipid levels pending. Continue home medication and Lipitor -- Bilateral knee osteoarthritis. We will manage pain with current pain medication regimen. --History of vertigo. Not on home medication. Continue supportive care. --Class III obesity. Likely secondary to excess calories intake. Patient counseled on weight reduction, diet and exercise therapy. --Elevated blood pressure without diagnosis of hypertension. Blood pressure now controlled. Hydralazine as needed for SBP greater than 160. --Sleep apnea. Continue supportive care. --DVT prophylaxis with heparin drip. Discharge Plan: Home Plan to discharge in: Greater than 2 days - Advance Directives Does patient have a Living Will: No Does patient have a Durable POA for Healthcare: No - Code Status/Comfort Care Code Status Assessed: Yes Code Status: Full Code Physician Review: Patient Assessed, Agree with Above Assessment and Plan Critical Care: No
[2022-05-23] MEDS: ATORVASTATIN 40 MG TAB PO SCH (20:42)
[2022-05-23] MEDS: PANTOPRAZOLE 40 MG INJ IVP SCH (20:43)
[2022-05-23 22:39] LABS: Phosphorus 3.6 mg/dL (2.5-4.9); Thyroid Stimulating Hormone 0.901 uIU/mL (0.360-3.740)
[2022-05-24 03:44] LABS: Absolute Lymphocytes (CBC) 2.7 K/uL (0.7-4.9); Hematocrit 37.2 % (39.6-49.0); Lymphocytes % 34.2 % (15.3-44.8); MCV 85.7 fL (80-100); MPV 7.5 fL (7.6-11.3); RBC Red Blood Cell Count 4.34 M/uL (4.33-5.43)
[2022-05-24 03:52] LABS: Potassium 3.6 mmol/L (3.5-5.1)
[2022-05-24 04:25] LABS: Specific Gravity 1.027 (1.005-1.030); Urine Bacteria <20 /HPF (<20); Urine Bilirubin NEGATIVE (Negative); Urine Blood Negative (Negative); Urine Clarity Clear (Clear); Urine Color Yellow (Yellow); Urine Glucose NEGATIVE (Negative); Urine Mucus 2+ /HPF (None Seen); Urine Protein TRACE (Negative); Urine RBC <5 /HPF (None Seen); Urine Urobilinogen Normal (Normal); Urine pH 5.5 (5.0-7.0)
--- NOTE | 2022-05-24 06:30 | EKG ---
Test Date: 2022-05-23 Test Time: 15:59:34 Guest Service Manager: REYNAL MEASUREMENT RESULTS: Intervals: Rate: 65 MO: 178 QRSD: 94 QT: 404 QTc: 420 [place]: P: 37 MO: 178 QRS: 28 T: 14 INTERPRETIVE STATEMENTS: Normal sinus rhythm Normal ECG Compared to ECG 03/28/2018 16:11:01 T-wave abnormality no longer present Electronically Signed On 05-24-22 06:30:19 PHYSICAL EDUCATION DEPARTMENT CHAIR by Vicente Jarquin
[2022-05-24] MEDS ORDERED: INFLUENZA VACCINE (for 6+ mo) 0.5 ML DOSE IMVAC ONE (08:00)
[2022-05-24] MEDS ORDERED: KCL 20 MEQ/100 mL IVPB 20 MEQ/100 ML BAG IV SCH (08:00)
[2022-05-24] MEDS: ASPIRIN 325 MG TAB PO SCH (08:20)
[2022-05-24] MEDS: PANTOPRAZOLE 40 MG INJ IVP SCH (08:20)
[2022-05-24] MEDS: HEPARIN/D5W 25,000 UNIT/500 ML BAG IV PRN (12:00)
--- NOTE | 2022-05-24 20:50 | P.PN ---
Date of Service: 05/24/22 Subjective: no acute events overnight no further chest pain/pressure ROS: 10 point ROS as noted above, otherwise negative Physical Exam: Gen: NAD, AOx3 HEENT: normal conjunctiva, sclera anicteric CV: regular rate & rhythm, no edema Pulm: non-labored respirations, clear bilaterally Abd: soft, non-tender, non-distended vitals reviewed Problem List NSTEMI TIA CORY Obesity DVT, unprovoked NSTEMI troponin inccreased cardiology consulted echo ordered plan for cath tomorrow continue heparin drip aspirin, statin, BB h/o TIA/DVT xarelto held VTE: heparin drip Code: full Dispo: home, 1-2 days Time Spent Managing Pts Care (In Minutes): 35
[2022-05-24] MEDS: ATORVASTATIN 40 MG TAB PO SCH (20:56)
[2022-05-25 00:04] VITALS: BMI 40.1
[2022-05-25] MEDS: HEPARIN/D5W 25,000 UNIT/500 ML BAG IV PRN (03:35)
[2022-05-25 04:30] LABS: Potassium 3.5 mmol/L (3.5-5.1)
--- NOTE | 2022-05-25 07:04 | ECHO ---
HEIGHT: 6 ft 1 in WEIGHT: 304 lb 0 oz DATE OF STUDY: 05/24/[address]: Aris Ivey 2-DIMENSIONAL: YES M.MODE: YES DOPPLER: YES COLOR FLOW: YES TDS: NO PORTABLE: YES DEFINITY: NO BUBBLE STUDY: NO DIAGNOSIS: CHEST PAIN CARDIAC HISTORY: CATHERIZATION: SURGERY: PROSTHETIC VALVE: PACEMAKER: MEASUREMENTS (cm) DIASTOLIC (NORMALS) SYSTOLIC (NORMALS) IVSd 1.0 (0.6-1.2) LA Diam 4.1 (1.9-4.0) LVEF 55% LVIDd 4.5 (3.5-5.7) LVIDs 3.2 (2.0-3.5) %FS 29% LVPWd 1.0 (0.6-1.2) Ao Diam 3.4 (2.0-3.7) 2 DIMENSIONAL ASSESSMENT: RIGHT ATRIUM: NORMAL LEFT ATRIUM: NORMAL RIGHT VENTRICLE: NORMAL LEFT VENTRICLE: NORMAL TRICUSPID VALVE: NORMAL MITRAL VALVE: NORMAL PULMONIC VALVE: NORMAL AORTIC VALVE: NORMAL PERICARDIAL EFFUSION: NONE AORTIC ROOT: NORMAL LEFT VENTRICULAR WALL MOTION: NORMAL DOPPLER/COLOR FLOW: SEE BELOW. COMMENTS: NORMAL LEFT VENTRICULAR EJECTION FRACTION 55-60% WITH NORMAL WALL MOTION. NORMAL DIASTOLIC FUNCTION. MILD TRICUSPID, PULMONARY, MITRAL AND AORTIC REGURGITATION. TECHNOLOGIST: Cecilia MORGAN
[2022-05-25] MEDS: PANTOPRAZOLE 40 MG INJ IVP SCH (07:27)
[2022-05-25] MEDS: ASPIRIN 325 MG TAB PO SCH (07:27)
[2022-05-25] MEDS ORDERED: VERAPAMIL HCL 10 MG/4 ML VIAL IV ONE (15:05)
[2022-05-25] MEDS ORDERED: FENTANYL CITR 100 MCG/2 ML ONE (15:05)
[2022-05-25] MEDS ORDERED: HEPA 1000U/500MLS 1,000 UNIT/500 ML BAG IV ONE (15:05)
[2022-05-25] MEDS ORDERED: CLOPIDOGREL 75 MG TABLET ONE (15:05)
[2022-05-25] MEDS ORDERED: MIDAZOLAM HCL 2 MG/2 ML INJ ONE (15:05)
[2022-05-25] MEDS ORDERED: HEPARIN 5000 UNIT/ML 1 ML VIAL ONE (15:05)
[2022-05-25] MEDS ORDERED: TICAGRELOR 90 MG TABLET PO ONE (15:06)
[2022-05-25] MEDS ORDERED: HEPARIN 10,000 UNIT/10 ML VIAL IV ONE ×2 (15:06→15:22)
[2022-05-25] MEDS ORDERED: NA CHLORIDE 0.9% 500 ML ONE (15:06)
[2022-05-25] MEDS ORDERED: ATROPINE SULF 1 MG/10 ML SYR IV ONE (15:06)
[2022-05-25 17:36] VITALS: TEMP 97.5
[2022-05-25 18:19] VITALS: BP 114/59; O2SAT 97
--- NOTE | 2022-05-25 21:03 | PN ---
Date of Progress Note: 05/25/2022 Subjective: Seen by bedside. No further chest pain since Saturday evening. Review of Systems: No chest pain, shortness of breath, orthopnea, or cough. No nausea, vomiting, or diarrhea. No abdom inal pain. No dysuria, polyuria, or urinary urgency. No skin rash. All other systems reviewed and they are negative. Physical Examination: Vital Signs: Reviewed. Head And Neck: Pupils are equal, reactive to light. Intact eye movements. No JVD. No cervical lym phadenopathy. Neck is supple. Thyroid is not enlarged. Lungs: Clear to auscultation bilaterally. No rhonchi, wheezing, or crackles. No accessory muscle u se. Heart: Regular rate and rhythm. No extra sounds. Abdomen: Soft, nontender. Bowel sounds positive. No organomegaly. No masses or hernia. No rigidi ty or rebound. Extremities: No edema, clubbing, or cyanosis. Intact pulses. Skin: No rashes. Neurologic: Alert, awake, oriented x3. No acute focal deficits appreciated. Lymph Nodes: No cervical or axillary lymphadenopathy. Investigations: Troponin peaked at 1889 and is trending down. Assessment And Recommendation: 1.Non-ST elevation myocardial infarction. He is n.p.o. with plan for coronary angiogram today. Tamiko nwhile, continue aspirin and we will shut off the heparin drip for the procedure. 2.Dyslipidemia. Continue high-dose statin at 40 mg at bedtime. 3.Hypertension. Blood pressure is controlled. SR/MODL Voice ID: [id number] Report ID: [id number]
--- NOTE | 2022-05-25 21:29 | P.DS ---
Admission Date: 05/23/22 Discharge Date: 05/25/22 Disposition: ROUTINE DISCHARGE Reason for Admission: Chest pain Consultations: Cardiology - Dr. Brink Brief History of Present Illness: 51-year-old male with a past medical history significant for TIA, DVT, osteoarthritis, vertigo, hypertriglyceridemia who presents with complaint of chest pain onset while patient was at work today. Patient indicated that chest pain is located in the left chest wall and radiates to his bilateral arms. Patient rated pain as 6/10 in severity and described pain as sharp/stabbing in quality. 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 Patient took an aspirin tablet. Patient reported associated signs and symptoms of shortness of breath and lightheadedness. 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 Patient denies any other signs and symptoms. Symptoms are aggravated or relieved by nothing. Patient was brought to the hospital for medical evaluation. Hospital Course: Problem List NSTEMI TIA CORY on CPAP Obesity DVT, unprovoked Patient presented with chest pain. EKG and Chest x-ray without any acute findings. Initial troponin was mildly elevated and continued to trend upwards. Cardiology was consulted for NSTEMI. Echocardiogram did not reveal wall motion abnormalities, and patient underwent coronary catheterization which revealed clean coronary arteries, but did note large coronary arteries. An episode that lead to significantly increased cardiac demand would lead to some ischemia/ NSTEMI in this situation. Patient's blood pressure and heart rate remained on the low-normal range so not a candidate to start a beta nikita at this time. Cardiology recommended no change in medications at this point. Continue xarelto and tricor. Monitor heart rate and blood pressure daily. Follow up with Dr. Brink in 2-3 weeks. Vital Signs/Physical Exam: Temp Pulse Resp BP Pulse Ox 97.5 F 70 16 114/59 L 94 05/25/22 17:31 05/25/22 18:18 05/25/22 18:18 05/25/22 18:18 05/25/22 12:00 Physical Exam: Gen: NAD, AOx3 HEENT: normal conjunctiva, sclera anicteric CV: regular rate & rhythm, no edema Pulm: non-labored respirations, clear bilaterally Abd: soft, non-tender, non-distended Laboratory Data at Discharge: WBC 7.70 K/uL (4.3-10.9) 05/24/22 03:12 Hgb 12.8 g/dL (13.6-17.9) L 05/24/22 03:12 Hct 37.2 % (39.6-49.0) L 05/24/22 03:12 Plt Count 219 K/uL (152-406) 05/24/22 03:12 PT 10.4 SECONDS (9.5-12.5) 05/23/22 16:10 INR 0.95 05/23/22 16:10 APTT 77.7 SECONDS (24.3-36.9) H 05/25/22 03:52 Sodium 139 mmol/L (136-145) 05/25/22 03:52 Potassium 3.5 mmol/L (3.5-5.1) 05/25/22 03:52 BUN 13 mg/dL (7-18) 05/25/22 03:52 Creatinine 0.91 mg/dL (0.55-1.3) 05/25/22 03:52 Glucose 130 mg/dL (74-106) H 05/25/22 03:52 Phosphorus 3.6 mg/dL (2.5-4.9) 05/23/22 21:46 Magnesium 2.0 mg/dL (1.8-2.4) 05/23/22 21:46 Total Bilirubin 0.4 mg/dL (0.2-1.0) 05/23/22 16:10 AST 36 U/L (15-37) 05/23/22 16:10 ALT 88 U/L (12-78) H 05/23/22 16:10 Alkaline Phosphatase 51 U/L (45-117) 05/23/22 16:10 Triglycerides 111 mg/dL (<150) 05/23/22 16:10 Cholesterol 147 mg/dL (<200) 05/23/22 16:10 HDL Cholesterol 60 mg/dL (40-60) 05/23/22 16:10 Cholesterol/HDL Ratio 2.45 05/23/22 16:10 Home Medications: Fenofibrate [Tricor*] 145 mg PO DAILY 05/24/22 Rivaroxaban [Xarelto] 20 mg PO DAILY 05/24/22 Physician Discharge Instructions: Patient presented with chest pain. EKG and Chest x-ray without any acute findings. Initial troponin was mildly elevated and continued to trend upwards. Cardiology was consulted for NSTEMI. Echocardiogram did not reveal wall motion abnormalities, and patient underwent coronary catheterization which revealed clean coronary arteries, but did note large coronary arteries. An episode that lead to significantly increased cardiac demand would lead to some ischemia/ NSTEMI in this situation. Patient's blood pressure and heart rate remained on the low-normal range so not a candidate to start a beta nikita at this time. Cardiology recommended no change in medications at this point. Continue xarelto and tricor. Monitor heart rate and blood pressure daily. Follow up with Dr. Brink in 2-3 weeks. Followup: Marilyn Velasco NP [Primary Care Provider] - 1-2 Weeks (Call for appointment.) Mike Brink MD [ACTIVE - CAN ADMIT] - 1-2 Weeks (Call for appointment.) Time spent managing pt's care (in minutes): 45
--- NOTE | 2022-05-26 03:57 | OP ---
Date of Procedure: 05/25/2022 Surgeon: ALEXANDRE RODRIGUEZ Procedure Performed: Selective coronary angiogram. Indication: [id number] myocardial infarction. Access: Right radial artery, 6-Syrian, closed with TR band. Complications: None. Bleeding: Less than 20 mL. Anesthesia: Total sedation time was 20 minutes, used fentanyl and Versed. Description Of Procedure: After risks, benefits, and alternatives were explained, the patient agreed to procedure and signed formal consent. The patient was brought into the cardiac catheterization la boratory, prepped and draped in usual sterile fashion and then accessed the right radial artery using pediatric micropuncture kit, placed a 6-Syrian slender sheath and took 5-Syrian [place] 4.0 catheter i nto the aortic root over a J-wire, engaged left main and right coronary artery, took standard views a nd then removed the catheter and sheath, placed TR band with good hemostasis. Findings: 1.Left main is very large artery, close to 8 mm in diameter, normal. 2.LAD very large artery and normal. Normal diagonal branches. 3.Left circumflex is very large and normal and its dominant circulation supplies old inferior wall a nd normal OM branches. 4.RCA; very small artery, non dominant, and normal. Conclusion: 1.Normal coronary arteries. 2.Larger coronary arteries than usual, but no focal aneurysm, probably his body habitus could be res ponsible for some chest pain. Recommendations: Recommend good blood pressure control. I believe this is demand ischemia from the hypertensive crisis and to treat him with aggressive blood pressure control medications including bet a nikita. SR/MODL Voice ID: [id number] Report ID: [id number]
--- NOTE | 2022-05-26 23:09 | CON ---
Date of Consultation: 05/24/[address] Blankenship, on 05/23/2022, with a non-STEMI. I saw the patient on 05/24/2022. History Of Present Illness: Mr. Barraza is a 51-year-old white male. 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 Came in with severe hypertensive crisis. Blood pressu res over 200 systolic, was found to have a troponin of 1590. Has been placed on heparin. Did have s ome chest pressure. Denies nausea, vomiting, diaphoresis, PND, orthopnea, pedal edema, palpitations, or syncope. Allergies: NONE. Past Medical History: As stated above. Medications: At home include TriCor and Xarelto. Xarelto has been held. Family History: Noncontributory. Social History: Negative. Physical Examination: General: Pleasant man. Vital Signs: Stable, afebrile. HEENT: Negative. Neck: Supple with no bruit. Chest: Clear. Cardiac: Revealed rhythm and rate with an S4 gallop. Abdomen: Benign. Extremities: Revealed no clubbing, cyanosis, or edema. Diagnostic Data: As stated earlier. Chest x-ray is negative. EKG is unremarkable. Impression And Plan: Non-STEMI, could certainly be related to hypertensive crisis. Echocardiogram i s pending. Continue heparin. Hold Xarelto. Plan for a heart catheterization tomorrow. His other i ssues include history of TIA, DVT, vertigo, and sleep apnea. We will resume his TriCor and Xarelto a fter the catheterization. The patient understands the risk and the benefits of the procedure and he agrees to proceed. GUSTAVO/MODL Voice ID: [id number] Report ID: [id number]
== END 2022-05-25 19:00 | disposition home or self-care (01) | DRG 281 ==
LOC: ER 15:38 → ERHOLD 17:36 → 4TH 18:57
PROVIDERS: ADMIT Hospitalist; ATTEND Hospitalist
PROC: 4A023N7 Measurement of Cardiac Sampling and Pressure, Left Heart, Percutaneous Approach (ICD-10-PCS; principal; 2022-05-25)
PROC: B2111ZZ Fluoroscopy of Multiple Coronary Arteries using Low Osmolar Contrast (ICD-10-PCS; 2022-05-25)
DX: I16.9 Hypertensive crisis, unspecified (principal); I21.A1 Myocardial infarction type 2; Z68.41 Body mass index [BMI] 40.0-44.9, adult; E66.01 Morbid (severe) obesity due to excess calories; G47.33 Obstructive sleep apnea (adult) (pediatric); E78.5 Hyperlipidemia, unspecified; E78.1 Pure hyperglyceridemia; I10 Essential (primary) hypertension; M17.0 Bilateral primary osteoarthritis of knee; R03.0 Elevated blood-pressure reading, without diagnosis of hypertension; Z86.73 Personal history of transient ischemic attack (TIA), and cerebral infarction without residual deficits; Z79.82 Long term (current) use of aspirin; Z79.01 Long term (current) use of anticoagulants; Z79.899 Other long term (current) drug therapy; Z86.718 Personal history of other venous thrombosis and embolism; Z20.822 Contact with and (suspected) exposure to COVID-19
CPT/HCPCS: 36415; 71045; 80048; 80061; 80076; 81001; 83036; 83735; 83880; 84100; 84439; 84443; 84484; 85025; 85610; 85730; 87811; 93005; 93306; 93454; 96374; 99285; C1893; C9113; J1644; J2250; J3010; J3480; J7040; Q9967